=== PATIENT | female | born 1990 | race American Indian/Alaskan Native ===

== ENCOUNTER 2022-02-03 11:08 | Emergency (ER) | payer MEDICAID ==
[2022-02-03 11:32] VITALS: BP 138/89
[2022-02-03] MEDS ORDERED: traMADol 50 MG TAB PO ONE (13:02)
--- NOTE | 2022-02-03 13:35 | XRay Report ---
CHEST 2 VIEWS INDICATION / CLINICAL INFORMATION: chest wall pain. COMPARISON: None available. FINDINGS: SUPPORT DEVICES: None. HEART / MEDIASTINUM: No significant abnormality. LUNGS / PLEURA: No significant pulmonary or pleural abnormality. No pneumothorax. ADDITIONAL FINDINGS: No acute skeletal abnormality. IMPRESSION: 1. No acute findings. Signer Name: Cesar Evangelista MD Signed: 02/03/2022 1:31 PM Workstation Name: [id number]
--- NOTE | 2022-02-03 13:39 | Emergency Department Report ---
ED General Adult HPI - General Chief complaint: Chest Pain Stated complaint: RIGHT SIDE CHEST PAIN Time Seen by Provider: 02/03/22 12:55 Source: patient Mode of arrival: Ambulatory Limitations: No Limitations - History of Present Illness Initial comments: Patient is a 31-year-old -[place] female who presents for right lateral chest wall pain with movement and deep inspiration x1 week. No fevers no chills no shortness of breath no wheezing no stridor no hemoptysis. Patient is a non- smoker patient does not have asthma. No cardiac history. Does have history of hypertension controlled by amlodipine p.o. daily. Is been no fevers no chills no diaphoresis no nausea or vomiting, no dysuria frequency or urgency.. Relieved by rest. Pain is with movement and cough currently. - Related Data Previous Rx's Medication Instructions Recorded Last Taken Type Naproxen 500 mg PO BID #30 tab 02/03/22 Unknown Rx Allergies Allergy/AdvReac Type Severity Reaction Status Date / Time No Known Allergies Allergy Unverified 02/03/22 11:26 ED Review of Systems ROS: Stated complaint: RIGHT SIDE CHEST PAIN Other details as noted in HPI Constitutional: denies: chills, fever Eyes: denies: eye pain, eye discharge, vision change ENT: denies: ear pain, throat pain Respiratory: denies: cough, shortness of breath, wheezing Cardiovascular: chest pain (Right lateral chest wall). denies: palpitations Endocrine: no symptoms reported Gastrointestinal: denies: abdominal pain, nausea, vomiting, diarrhea Genitourinary: denies: urgency, dysuria, discharge Musculoskeletal: back pain (Right upper flank). denies: joint swelling, arthralgia Skin: denies: rash, lesions Neurological: denies: headache, weakness, paresthesias, vertigo Psychiatric: denies: anxiety, depression Hematological/Lymphatic: denies: easy bleeding, easy bruising ED Past Medical Hx - Past Medical History Hx Hypertension: Yes - Surgical History Additional Surgical History: C SECTION - Medications Home Medications: Home Medications Medication Instructions Recorded Confirmed Last Taken Type Naproxen 500 mg PO BID #30 tab 02/03/22 Unknown Rx ED Physical Exam - General Limitations: No Limitations General appearance: alert, in no apparent distress - Head Head exam: Present: normocephalic - Eye Eye exam: Present: PERRL, EOMI Pupils: Present: normal accommodation - ENT ENT exam: Present: normal orophraynx, mucous membranes moist - Neck Neck exam: Present: normal inspection, full ROM. Absent: tenderness, lymphadenopathy - Respiratory Respiratory exam: Present: normal lung sounds bilaterally, chest wall tenderness (Right lateral chest wall tenderness to deep palpation no crepitus no ecchymosis no step-off). Absent: respiratory distress, wheezes, stridor - Cardiovascular Cardiovascular Exam: Present: regular rate, normal rhythm, normal heart sounds. Absent: systolic murmur, diastolic murmur, rubs, gallop - GI/Abdominal GI/Abdominal exam: Present: soft, normal bowel sounds. Absent: distended, tenderness, guarding, rebound, rigid, bruit, hernia - Rectal Rectal exam: Present: deferred - Extremities Exam Extremities exam: Present: normal inspection, full ROM, normal capillary refill. Absent: pedal edema - Back Exam Back exam: Present: normal inspection, full ROM, tenderness (Right upper back tenderness to deep palpation no crepitus no step-off no ecchymosis) - Neurological Exam Neurological exam: Present: alert, oriented X3, CN II-XII intact, normal gait, reflexes normal. Absent: motor sensory deficit - Expanded Neurological Exam Expanded Patient oriented to: Present: person, place, time Speech: Present: fluid speech Motor strength exam: RUE: 5, LUE: 5, RLE: 5, LLE: 5 Best Eye Response (Vinny): (4) open spontaneously Best Motor Response (Hardy): (6) obeys commands Best Verbal Response (Hardy): (5) oriented Vinny Total: 15 - Psychiatric Psychiatric exam: Present: normal affect, normal mood - Skin Skin exam: Present: warm, dry, intact, normal color. Absent: rash ED Course Vital Signs 02/03/22 11:31 Temperature 98.7 F Pulse Rate 72 Respiratory 20 Rate Blood Pressure 138/89 O2 Sat by Pulse 96 Oximetry ED Medical Decision Making - EKG Data EKG shows normal: sinus rhythm, axis, intervals, QRS complexes, ST-T waves Rate: normal - EKG Data Interpretation: normal EKG (Normal sinus rhythm no ST elevated LA interpreted by ED attending this is a normal EKG) - Radiology Data Radiology results: report reviewed, image reviewed CHEST 2 VIEWS INDICATION / CLINICAL INFORMATION: chest wall pain. COMPARISON: None available. FINDINGS: SUPPORT DEVICES: None. HEART / MEDIASTINUM: No significant abnormality. LUNGS / PLEURA: No significant pulmonary or pleural abnormality. No pneumothorax. ADDITIONAL FINDINGS: No acute skeletal abnormality. IMPRESSION: 1. No acute findings. Signer Name: Cesar Evangelista MD Signed: 02/03/2022 1:31 PM Workstation Name: [id number] Transcribed By: DT Dictated By: Ulisses Evangelista MD Electronically Authenticated By: Ulisses Evangelista MD Signed Date/Time: 02/03/221330 DD/ 29 TD/TT: - Medical Decision Making Chest x-ray normal infiltration opacities, EKG normal sinus rhythm with no ST elevated LA, there is no fevers no chills no shortness of breath no wheezing or stridor. This chest wall pain is reproducible to deep palpation. This is likely chest wall strain. Plan NSAIDs as needed pain, follow-up primary care doctor in 2 to 3 days. Patient verbalized agreement and understanding with discharge plan. Patient DC to home in stable condition at this time. Critical care attestation.: If time is entered above; I have spent that time in minutes in the direct care of this critically ill patient, excluding procedure time. ED Disposition Clinical Impression: Chest wall pain Disposition: 01 HOME / SELF CARE / HOMELESS Is pt being admited?: No Does the pt Need Aspirin: No Condition: Stable Instructions: Chest Wall Pain, [id number] Additional Instructions: Take medications as prescribed. Follow-up with primary care doctor in 2 to 3 days. Return to emergency department for symptoms worsen. Prescriptions: Naproxen 500 mg PO BID #30 tab Referrals: JUAN CARLOS FLORES MD [Staff Physician] - 3-5 Days Forms: Work/School Release Form(ED) Time of Disposition: 13:41
--- NOTE | 2022-02-05 16:50 | Electrocardiograph Report ---
[facility] Test Date: 2022-02-03 Test Time: 11:47:26 Pat Name: MALLY AMEZCUA Department: Room: Gender: F [employer] Operator: LUIGI : 1990 Requested By: BECKY BOYLE Order Number: [id number] Reading MD: Rossana Martinez Measurements Intervals [place] Rate: 74 P: 41 TN: 177 QRS: 23 QRSD: 72 T: 16 QT: 376 QTc: 418 Interpretive Statements Sinus rhythm No previous ECG available for comparison Electronically Signed On 02-05-2022 16:50:28 EDT by Rossana Martinez
== END 2022-02-03 17:22 | disposition home or self-care (01) ==
LOC: ED 11:08
DX: R07.89 Other chest pain (principal); I10 Essential (primary) hypertension; Z98.890 Other specified postprocedural states; Z79.899 Other long term (current) drug therapy
CPT/HCPCS: 71046; 93005; 99283